=== PATIENT | female | born 1950 | race Caucasian/White ===

== ENCOUNTER 2025-05-21 10:21 | Outpatient (CLI) | payer MEDICARE, SELFPAY | END 2025-05-21 10:22 | disposition home or self-care (01) | LOC: NFLDREF 23:45 | PROVIDERS: Visit Provider Physician Assistant | DX: N30.00 Acute cystitis without hematuria (principal); B96.4 Proteus (mirabilis) (morganii) as the cause of diseases classified elsewhere | CPT/HCPCS: 87086 ==